=== PATIENT | female | born 1990 | race African-American/Black ===

== ENCOUNTER 2021-12-29 13:36 | Emergency (ER) | payer OTHER, SELFPAY ==
--- NOTE | ~2021-12-29 | XR_ITS ---
EXAMINATION: XR tibia fibula LT 2V INDICATION: Left leg pain TECHNIQUE: Two views of the left tibia and fibula are obtained. COMPARISON: None available FINDINGS: There are intramedullary rods in the tibia. There is subtle buckling of the posteromedial c ortex of the proximal fibula, likely prior injury. An exostosis projects from the medial cortex of th e mid tibia. No acute fracture is identified. The soft tissues are unremarkable. IMPRESSION: 1. No acute osseous abnormality. Reviewed, dictated and finalized at location B. [employer]ICER
--- NOTE | ~2021-12-29 | XR_ITS ---
EXAMINATION: XR tibia fibula RT 2V INDICATION: Right leg pain TECHNIQUE: Two views of the right tibia and fibula are obtained. COMPARISON: None available FINDINGS: There is no fracture, dislocation, or subluxation. The bones, soft tissues, and joint space s are normal. IMPRESSION: 1. No acute osseous abnormality. Reviewed, dictated and finalized at location B. EGE TUTOR
[2021-12-29 13:53] VITALS: BP 129/83; PULSE 97; RESP 16; TEMP 37.3; O2SAT 99
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
== END 2021-12-29 15:02 | disposition home or self-care (01) ==
PROVIDERS: Emergency Provider Nurse Practitioner Family
DX: S80.12XA Contusion of left lower leg, initial encounter (principal); S80.11XA Contusion of right lower leg, initial encounter; S16.1XXA Strain of muscle, fascia and tendon at neck level, initial encounter; S39.012A Strain of muscle, fascia and tendon of lower back, initial encounter; V43.52XA Car driver injured in collision with other type car in traffic accident, initial encounter
CPT/HCPCS: 73590; 99204; G0463